=== PATIENT | female | born 1955 | race Caucasian/White ===

== ENCOUNTER 2016-12-27 13:00 | Emergency (ER) | payer OTHER ==
[~2016-12-27] VITALS: Ht 170.2 cm; Wt 76.8 kg
[2016-12-27] MEDS ORDERED: AMIT10TA PO (13:33)
[2016-12-27] MEDS ORDERED: IBUP-1114 PO (13:33)
[2016-12-27] MEDS ORDERED: statin (13:33)
[2016-12-27] MEDS ORDERED: LISI40TAB PO (13:33)
[2016-12-27 16:00] LABS: MEAN CORPUSCULAR HEMOGLOBIN 30.5 pg (27.0-33.0); MEAN CORPUSCULAR HGB CONC 34.8 g/dl (32.0-36.5); MEAN CORPUSCULAR VOLUME 87.6 fl (80.0-96.0); RED CELL DISTRIBUTION WIDTH 12.2 % (11.5-14.5); WHITE BLOOD COUNT 7.2 K/mm3 (4.0-10.0)
[2016-12-27 16:25] LABS: CONTROL LINE HCG INT CTR LINE PRESENT
[2016-12-27 16:35] LABS: METHADONE URINE NEGATIVE (NEGATIVE)
[2016-12-27 16:44] LABS: ALBUMIN 4.5 GM/DL (3.2-5.2); ALBUMIN/GLOBULIN RATIO 1.15 (1.00-1.93); ALKALINE PHOSPHATASE 110 U/L (45-117); ALT/SGPT 20 U/L (12-78); ANION GAP 6 MEQ/L (8-16); AST/SGOT 16 U/L (15-37); BILIRUBIN,DIRECT 0.1 MG/DL (0.0-0.2); BILIRUBIN,TOTAL 0.5 MG/DL (0.2-1.0); BLOOD UREA NITROGEN 14 MG/DL (7-18); CALCIUM LEVEL 10.2 MG/DL (8.8-10.2); CARBON DIOXIDE LEVEL 28 MEQ/L (21-32); CHLORIDE LEVEL 107 MEQ/L (98-107); CREATININE FOR GFR 0.99 MG/DL (0.55-1.02); GLOMERULAR FILTRATION RATE > 60.0 (>45); GLUCOSE, FASTING 106 MG/DL (80-110); POTASSIUM SERUM 3.7 MEQ/L (3.5-5.1); SODIUM LEVEL 141 MEQ/L (136-145); TOTAL PROTEIN 8.4 GM/DL (6.4-8.2)
[2016-12-28 04:43] VITALS: BP 122/59
--- NOTE | 2016-12-29 08:40 | ECGEPIP ---
Stationary ECG Study [facility] [place] - ED Test Date: 2016-12-27 Pat Name: TC WATSON Department: Room: - Gender: F [employer]: mami : 1955 Requested By: Barbara Roland Order Number: [id number] Reading MD: Laura Sousa Measurements Intervals [place] Rate: 66 P: 65 SD: 219 QRS: 64 QRSD: 95 T: 54 QT: 395 QTc: 416 Interpretive Statements SINUS RHYTHM WITH FIRST DEGREE AV BLOCK NSTTW ABNORMALITY NO PRIOR FOR COMPARISON Electronically Signed On 12-29-2016 8:40:12 EDT by Laura Sousa
== END 2016-12-28 04:50 | disposition short-term general hospital (02) ==
LOC: M ED 13:00
DX: R45.851 Suicidal ideations (principal); F32.9 Major depressive disorder, single episode, unspecified; I10 Essential (primary) hypertension; E78.00 Pure hypercholesterolemia, unspecified; Z90.89 Acquired absence of other organs; Z79.899 Other long term (current) drug therapy
CPT/HCPCS: 36415; 80048; 80076; 80307; 84443; 84703; 85027; 93005; 99285; G0480